=== PATIENT | male | born 1940 | race Caucasian/White ===

== ENCOUNTER 2017-04-04 13:42 | Inpatient (IN) ==
[2017-04-04 15:00] LABS: Basophils % 0.3 %; Eosinophils % 0.3 %; Hematocrit 45.2 % (37.5-50.1); Hemoglobin 15.3 g/dL (12.9-16.9); Immature Granulocytes % 0.7 % (0-4); Lymphocytes # 0.7 K/mcL (0.6-4.6); Lymphocytes % 6.4 %; Mean Corpuscular HGB Conc 33.8 g/dL (31.6-35.5); Mean Corpuscular Hemoglobin 34.5 pg (28.0-33.3); Mean Platelet Volume 9.5 fL (9.4-12.4); Monocytes # 0.7 K/mcL (0.0-1.3); Neutrophils # 8.6 K/mcL (1.6-8.9); Platelet Count 192 K/mcL (140-400); Red Blood Count 4.43 M/mcL (4.19-5.50); Red Cell Distribution Width 13.4 % (11.5-14.5); Segmented Neutrophils % 85.3 %
[2017-04-04 15:11] LABS: BUN/Creatinine Ratio 16 (6-26); Blood Urea Nitrogen 12 mg/dL (8-26); Calcium 9.2 mg/dL (8.6-10.8); Carbon Dioxide 34 mEq/L (19-29); Chloride 101 mEq/L (98-109); Glucose 159 mg/dL (70-99); Osmolality,Calculated 285 (280-300); Sodium 136 mEq/L (136-145); eGFR For African Americans > 60 (> 60); eGFR For Non-African Americans > 60 (> 60)
--- NOTE | 2017-04-04 15:39 | Emergency Department Note ---
Disposition Clinical Impression: Vertigo Disposition: Admitted As Inpatient Condition: Fair Time of Disposition: 18:12 General Adult HPI - General Chief complaint: ED Shortness of Breath/Dyspnea Stated complaint: CRISTINA-COPD Time Seen by Provider: 04/04/17 14:12 Source: patient, EMS Limitations: no limitations Nursing Notes Reviewed: Yes Vital Signs Reviewed: Yes - History of Present Illness HPI Narrative: Presents with vertiginous dizziness which began 2 days ago when he sat up on the edge of the bed and it is intermittent but lasting at times up to 1 hours constantly at a time. It is worse when he turns his head. He does have a history of TIA and he does have chronic shortness of breath from COPD but this is unchanged from baseline. He does have pain in his right chest which is present only with coughing and this is not a new finding and I did confirm that twice. He denies any other type of chest discomfort. No diaphoresis. He does not have exertional chest pain. No localized numbness or weakness of extremities, slurred speech, facial droop or confusion. Social history: Stopped smoking in 1989. Is here with his who does use nasal cannula oxygen 2 L chronically at home Pain Scale: 0 - Related Data Home Medications Medication Instructions Recorded Confirmed Aspirin [Lo-Dose Aspirin EC] 81 mg PO DAILY 07/15/16 04/04/17 Fluticasone Propionate [Flovent 110 mcg IH DAILY 07/15/16 04/04/17 Hfa] Salmeterol Xinafoate [Serevent 2 puff IH BID 07/15/16 04/04/17 Diskus] Tiotropium [Spiriva] 18 mcg IH 0700 07/15/16 04/04/17 Albuterol Sulfate [Albuterol 2 puff IH Q4H PRN 04/04/17 04/04/17 Inhaler] levoFLOXacin [Levofloxacin] 750 mg PO DAILY 04/04/17 04/04/17 predniSONE [PredniSONE] 5 mg PO TIDWM 04/04/17 04/04/17 Allergies Allergy/AdvReac Type Severity Reaction Status Date / Time Amoxicillin [From Amoxil] Allergy Intermediate Rash Verified 07/07/16 14:06 Erythromycin Base Allergy Intermediate Itching Verified 07/07/16 14:07 Review of Systems: Constitutional: No fever Vision: No blurred vision ENT: No rhinorrhea Respiratory: No new cough Allergic: No allergies : No blood in urine GI: No blood in stool Hematologic: No bruising Dermatologic: No skin rash Musculoskeletal: No pain in the extremities Neuro: No numbness of the extremities Past Medical History - Past Medical History Medical history: Reports: COPD, diabetes, TIA Psychiatric history: Reports: no psych history - Social History Smoking Status: Former smoker Smokeless Tobacco Status: No Alcohol use: Reports: none Drug use: Reports: none Physical Exam CONSTITUTIONAL: Alert and oriented X3, well-nourished, well appearing, in no apparent distress HEAD: Normocephalic; atraumatic. EYES: PERRL, no scleral icterus. NOSE: The nose is normal in appearance without rhinorrhea RESP: Normal chest excursion with respiration; breath sounds with bilateral wheezing which is symmetric Cardiovascular: Regular rate and rhythm without murmur, rub, gallop ABD: Non-distended; non-tender, soft,without rigidity, rebound or guarding SKIN: Normal for age and race; warm and dry; no apparent lesions EXTREMITIES: Pulses are 2 plus and equal times 4 extremities, no peripheral edema or calf muscle pain. - General Limitations: no limitations General appearance: alert, in no apparent distress Course Vital Signs Temperature 98.3 F 04/04/17 14:20 Pulse Rate 100 04/04/17 14:20 Respiratory Rate 22 04/04/17 14:20 Blood Pressure 149/93 04/04/17 14:20 O2 Sat by Pulse Oximetry 95 04/04/17 14:20 Temperature 98.3 F 04/04/17 14:20 Pulse Rate 100 04/04/17 14:20 Respiratory Rate 20 04/04/17 17:30 Blood Pressure 149/93 04/04/17 14:20 O2 Sat by Pulse Oximetry 96 04/04/17 17:30 Oxygen Delivery Oxygen Delivery Nasal Cannula Medical Decision Making - MDM Narrative Medical decision making narrative: I did confirm several times that the patient is not here for his breathing as he has had COPD for many years and is unchanged from baseline. His cough is unchanged. His pain in the right chest when he takes a breath is unchanged. The new finding that they are here for evaluation for his vertigo this began 2 days ago and he does have labs ordered which are pending, I did review his EKG showing normal sinus rhythm with a rate of 94 without acute ischemic change. CT scan of the brain is pending. The patient does have a history of TIA and it will be difficult to differentiate benign paroxysmal positional vertigo from a cerebellar or brainstem infarcts of the patient will be admitted for further inpatient evaluation. Results pending. 1539 I did just check back and spoke with the patient's who request that he get some of the medications that he is missed including prednisone 5 mg and Levaquin 750 mg a did write for those. Also he typically takes Serevent around this time so I did write for a DuoNeb. He did just return from head CT and these results are pending. The patient will be admitted for further evaluation of TIA or CVA as to be a cause of his vertigo [address] negative. We did speak with the hospitalist who accepts the patient for admission. Further inpatient evaluation of possible TIA or CVA. Patient is not a thrombolytic candidate due to a stroke scale of 0 and prolonged duration of symptoms. 1811 - Medical Records Medical records reviewed: Yes I reviewed the patient's medical records. - Lab Data Lab results reviewed: Yes I reviewed the patient's lab results. Result diagrams: 04/04/17 14:48 04/04/17 14:48 Lab Results 04/04/17 04/04/17 04/04/17 Range/Units 14:48 14:48 14:48 WBC 10.1 (4.3-11.1) K/mcL RBC 4.43 (4.19-5.50) M/mcL Hgb 15.3 (12.9-16.9) g/dL Hct 45.2 (37.5-50.1) % MCV 102.0 H (83.0-100.0) fL MCH 34.5 H (28.0-33.3) pg MCHC 33.8 (31.6-35.5) g/dL RDW 13.4 (11.5-14.5) % Plt Count 192 (140-400) K/mcL MPV 9.5 (9.4-12.4) fL Immature Gran % 0.7 (0-4) % Seg Neutrophils % 85.3 % Lymphocytes % 6.4 % Monocytes % 7.0 % Eosinophils % 0.3 % Basophils % 0.3 % Neutrophils # 8.6 (1.6-8.9) K/mcL Lymphocytes # 0.7 (0.6-4.6) K/mcL Monocytes # 0.7 (0.0-1.3) K/mcL Eosinophils # 0.0 (0.0-0.6) K/mcL Basophils # 0.0 (0.0-0.2) K/mcL Sodium 136 (136-145) mEq/L Potassium 4.0 (3.5-4.5) mEq/L Chloride 101 (98-109) mEq/L Carbon Dioxide 34 H (19-29) mEq/L BUN 12 (8-26) mg/dL Creatinine 0.73 (0.72-1.25) mg/dL Est GFR ( Amer) > 60 (> 60) Est GFR (Non-Af Amer) > 60 (> 60) BUN/Creatinine Ratio 16 (6-26) Glucose 159 H (70-99) mg/dL Calculated Osmolality 285 (280-300) Calcium 9.2 (8.6-10.8) mg/dL Troponin I 0.02 (0-0.03) ng/mL - Radiology Data Radiology results reviewed: Yes I reviewed the patient's radiology results. NIH Stroke Scale - Level of Consciousness LOC: Alert - LOC Questions LOC Questions: Answers both correctly - LOC Commands LOC Commands: Performs both correctly - Best Gaze Best Gaze: Normal - Visual Visual: No visual loss - Facial Palsy Facial Palsy: Normal - Motor Arms Motor Arm-Left: No drift for 10 seconds Motor Arm-Right: No drift for 10 seconds - Motor Legs Motor Leg-Left: No drift for 5 seconds Motor Leg-Right: No drift for 5 seconds - Limb Ataxia Limb Ataxia: Normal, No Ataxia - Sensory Sensory: Normal - Best Language Best Language: No aphasia - Dysarthria Dysarthria: Normal - Extinction and Inattention Extinction and Inattention: Normal - NIHSS Total Score NIHSS Total Score: 0
[2017-04-04] MEDS ORDERED: Ipratropium/Albuterol Neb 3 ML IH ONE (16:35)
[2017-04-04] MEDS ORDERED: predniSONE 20 MG TABLET PO ONE (16:35)
[2017-04-04] MEDS ORDERED: levoFLOXacin 750 MG TABLET PO ONE (16:36)
[2017-04-04] MEDS ORDERED: Naloxone 0.4 MG/ML INJ IVP PRN (20:54)
[2017-04-04] MEDS ORDERED: *HR* Promethazine 25 MG/ML VIAL IVP PRN (20:54)
[2017-04-04] MEDS ORDERED: Albuterol 2.5 MG/3 ML NEBULIZER IH PRN (20:54)
[2017-04-04] MEDS ORDERED: Acetaminophen 325 MG TABLET PO PRN (20:54)
[2017-04-04] MEDS: Nystatin SUSP 5 ML UD.LIQ PO SCH (21:11)
[2017-04-04] MEDS: *HR* Heparin 5,000 UNIT/ML VIAL SQ SCH (21:11)
--- NOTE | 2017-04-04 21:27 | Internal Med History&Physical ---
Date of Encounter: 04/04/17 Time of Encounter: 20:20 Assessment and Plan (1) Acute exacerbation of chronic obstructive pulmonary disease (COPD) Current visit: Yes Status: Acute 1. Will place on IV steroids, scheduled Duonebs, and PRN albuterol aerosols. 2. 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 3. Will request records from [facility] from this spring. 4. Will order sputum culture and gram stain. 5. If clinical status declines, patient and request transfer to [facility]. (2) Thrush Current visit: Yes Status: Acute 1. Will place on oral Nystatin suspension. 2. Monitor clinically. (3) Vertigo Current visit: Yes Status: Acute 1. Likely due to viral process. 2. 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 Symptoms started about 3 days ago associated with worsening COPD flare. 3. No focal neurologic deficits noted. (4) DVT prophylaxis Current visit: Yes Status: Acute 1. Heparin SQ. Internal Medicine - H&P: HPI Chief complaint: cough, wheeze, vertigo Admitted From: Emergency Dept Plans for Post Hospital Care: Home History of present illness: Mr. Redding is a 77 year old male who presents with significant coughing, wheezing, productive sputum, and generalized weakness for the last several days. He's had no fevers, chills, or night sweats. He has been dealing with his COPD flareup since early January and has been on multiple outpatient regimens without relief. He has gotten to the point now where he cannot continue his home medicines and came into the ER for evaluation. He has also developed some vertigo the last 3 days, especially with severe coughing fits and worsening dyspnea. He denies any focal weakness or numbness. However, he does feel dizzy when he changes positions and stands up too fast. He sees Dr. Quintana (pulmonology) at [facility] and requests transfer to [place] if his condition worsens. Patient and his prefer to stay here. However, if his hospital course becomes complicated and/or prolonged, they request transfer. Of note, patient was hospitalized in August of this year at [place] for several days and had bacterial infection in his lungs confirmed by sputum culture. We will try to obtain those records. Presently, patient is resting in bed in no distress. Upon standing him up or sitting him up, he does have a little vertigo, but I do not appreciate any nystagmus. He has no other focal neurologic deficits. Of note, patient is on chronic steroids and oxygen dependent for COPD. Past Med Surg Social Fam HX - Past Medical History Attestation: Yes The following information was validated with the patient. Source: patient, old records reviewed, obtained from family Medical history: COPD, diabetes, TIA Psychiatric history: no psych history - Past Surgical History Surgical History: herniorrhaphy - Social History Smoking Status: Former smoker Smokeless Tobacco Status: No Alcohol use: none Drug use: none Current living situation: Home, With Family Activity Level: Independent ambulation Recent Out of Country Travel Within the Last 8 Weeks: No - Family History Father Adopted: No Family Member Ethnicity: Non- Living Status: Hx Family Cardiac Disorders: No Hx Family Respiratory Disorders: Yes (COPD) Hx Family Cancer: No Hx Family GI Disorders: No Hx Family Endocrine Disorder: No Hx Family Neuromuscular Disorders: No Hx Family Neurologic Disorders: No Hx Family HEENT Disorders: No Hx Family Autoimmune Disorders: No Internal Medicine - H&P: Meds Aspirin [Lo-Dose Aspirin EC] 81 mg PO DAILY 07/15/16 [History] Fluticasone Propionate [Flovent Hfa] 110 mcg IH DAILY 07/15/16 [History] Salmeterol Xinafoate [Serevent Diskus] 2 puff IH BID 07/15/16 [History] Tiotropium [Spiriva] 18 mcg IH 0700 07/15/16 [History] Albuterol Sulfate [Albuterol Inhaler] 2 puff IH Q4H PRN 04/04/17 [History] levoFLOXacin [Levofloxacin] 750 mg PO DAILY 04/04/17 [History] predniSONE [PredniSONE] 5 mg PO TIDWM 04/04/17 [History] 3 Allergy/AdvReac Type Severity Reaction Status Date / Time Amoxicillin [From Amoxil] Allergy Intermediate Rash Verified 07/07/16 14:06 Erythromycin Base Allergy Intermediate Itching Verified 07/07/16 14:07 - Constitutional Constitutional: weakness, no chills, no fever(s), no night sweats - EENT Eyes: no blurry vision, no change in vision Ears: no ear pain, no tinnitus Nose, mouth and throat: no nasal congestion, no nasal discharge, no sinus pressure, no sore throat - Cardiovascular Cardiovascular ROS IM: no chest pain, no diaphoresis, no lightheadedness, no palpitations, no paroxysmal nocturnal dyspnea, no syncope - Respiratory Respiratory: cough, dyspnea, dyspnea on exertion, wheezing, chest congestion, excessive phlegm production, change in phlegm color, no hemoptysis, no pain on inspiration, no pain with cough - Gastrointestinal Gastrointestinal: no abdominal pain, no diarrhea, no hematemesis, no hematochezia, no melena, no nausea, no vomiting - Genitourinary Genitourinary ROS male: no dysuria, no flank pain, no hematuria - Musculoskeletal Musculoskeletal ROS IM: no arthralgias, no back pain, no muscle cramps - Integumentary Integumentary IM: no rash, no jaundice - Neurological Neurological ROS: vertigo, no abnormal speech, no focal weakness, no frequent falls, no headache(s), no numbness, no paresthesias - Psychiatric Psychiatric: no anxiety, no depression - Endocrine Endocrine IM: no polydipsia, no polyuria - Hematologic/Lymphatic Hematologic/Lymphatic: easy bruising - Allergic/Immunologic Allergic/Immunologic: wheezing, no GI upset with certain foods - Constitutional Vitals: Temp Pulse Resp BP Pulse Ox 98.2 F 105 16 154/82 97 04/04/17 18:54 04/04/17 18:54 04/04/17 18:54 04/04/17 18:54 04/04/17 19:41 General appearance: Present: cooperative, mild distress, A&O X 3, pleasant, answers questions appropriately - Head Head exam: Present: atraumatic, normal inspection - Eye Eye exam: Present: EOMI, normal appearance, PERRL. Absent: scleral icterus Pupils: Present: normal accommodation - ENT ENT exam: Present: mucous membranes dry Additional comments: + thrush on palate and inner cheeks - Neck Neck exam general surgery: Present: full ROM, supple. Absent: lymphadenopathy, tenderness - Respiratory Respiratory exam: Present: accessory muscle use, prolonged expiratory phase, respiratory distress (mild), wheezes. Absent: chest wall tenderness, rales, rhonchi Additional comments: barrel chested - Cardiovascular Cardiovascular exam: Present: distant heart sounds, RRR, +S1, +S2. Absent: diastolic murmur, systolic murmur - GI/Abdominal GI/Abdominal exam: Present: normal bowel sounds, soft. Absent: hepatomegaly, splenomegaly, tenderness - Extremities Exam Extremities exam: Present: full ROM, warm, radial pulses palpable and symmetrical. Absent: calf tenderness, pedal edema, tenderness - Back Exam Back exam: Present: normal inspection. Absent: CVA tenderness (L), CVA tenderness (R) - Neurological Exam Neurological exam: Present: alert, CN II-XII intact, oriented X3, no focal deficits, strengths equal and symetr throughout. Absent: facial droop, speech deficit Additional comments: + vertigo with position changes; no nystagmus appreciated - Psychiatric Psychiatric exam: Present: normal affect, normal mood - Skin Skin exam: Present: dry, warm. Absent: rash Internal Med - H&P Results - Labs CBC & Chem 7: 04/04/17 14:48 04/04/17 14:48 - EKG Data -: EKG Interpreted by Myself - EKG Data Prior EKG available for review: no EKG comments: 04/04/17 21:32 NSR; no acute changes - Diagnostic Studies Chest x-ray Status: image reviewed by me (hyperinflated, otherwise negative)
[2017-04-04] MEDS: Ipratropium/Albuterol Neb 3 ML IH SCH (22:17)
[2017-04-04] MEDS: methylPREDNISolone 125 MG/2 ML VIAL IVP SCH (23:39)
[2017-04-05] MEDS: Ipratropium/Albuterol Neb 3 ML IH SCH ×4 (03:53→22:50)
[2017-04-05 05:42] LABS: Basophils % 0.2 %; Hematocrit 40.2 % (37.5-50.1); Immature Granulocytes % 1.4 % (0-4); Lymphocytes # 0.2 K/mcL (0.6-4.6); Lymphocytes % 4.1 %; Mean Corpuscular HGB Conc 33.8 g/dL (31.6-35.5); Mean Corpuscular Hemoglobin 34.6 pg (28.0-33.3); Mean Corpuscular Volume 102.3 fL (83.0-100.0); Mean Platelet Volume 9.8 fL (9.4-12.4); Monocytes # 0.1 K/mcL (0.0-1.3); Neutrophils # 5.5 K/mcL (1.6-8.9); Nucleated Red Blood Cells 0.3 /100 WBC (0); Platelet Count 185 K/mcL (140-400); Red Blood Count 3.93 M/mcL (4.19-5.50); Red Cell Distribution Width 13.2 % (11.5-14.5); Segmented Neutrophils % 93.3 %
[2017-04-05] MEDS: *HR* Heparin 5,000 UNIT/ML VIAL SQ SCH ×2 (05:42→17:04)
[2017-04-05 05:43] LABS: Hemoglobin 13.6 g/dL (12.9-16.9)
[2017-04-05 05:55] LABS: Alanine Aminotransferase 19 Units/L (0-55); Albumin 3.1 g/dL (3.5-5.0); Albumin/Globulin Ratio 1.1 (1.1-2.2); Alkaline Phosphatase 86 Units/L (38-126); Aspartate Amino Transferase 10 Units/L (5-34); BUN/Creatinine Ratio 19 (6-26); Blood Urea Nitrogen 14 mg/dL (8-26); Calcium 8.7 mg/dL (8.6-10.8); Carbon Dioxide 27 mEq/L (19-29); Chloride 101 mEq/L (98-109); Globulin 2.8 g/dL (2.4-3.5); Glucose 234 mg/dL (70-99); Osmolality,Calculated 292 (280-300); Potassium 4.6 mEq/L (3.5-4.5); Sodium 137 mEq/L (136-145); Total Protein 5.9 g/dL (6.0-8.3); eGFR For African Americans > 60 (> 60); eGFR For Non-African Americans > 60 (> 60)
[2017-04-05] MEDS: Nystatin SUSP 5 ML UD.LIQ PO SCH ×4 (10:18→20:24)
[2017-04-05] MEDS: Aspirin Enteric Coated 81 MG Tablet PO SCH (10:18)
[2017-04-05] MEDS: Levofloxacin 750 MG/150 ML 750 MG/150 ML BAG IVPB SCH (10:21)
[2017-04-05] MEDS: methylPREDNISolone 125 MG/2 ML VIAL IVP SCH ×3 (10:22→23:55)
[2017-04-05] MEDS: Tiotropium 18 MCG inhalation IH SCH (10:54)
[2017-04-05] MEDS: Beclomethasone 80mcg MDI IH SCH (10:56)
--- NOTE | 2017-04-05 14:36 | Internal Med Progress Note ---
Date of Encounter: 04/05/17 Time of Encounter: 14:31 - Assessment and plan (1) Acute exacerbation of chronic obstructive pulmonary disease (COPD) Current Visit: Yes Status: Acute Assessment and plan: has underlying COPD and wears oxygen [id number] at home. 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 Now with increasing shortness of breath and diffuse wheezing on presentation. CXR nonacute. Change ATB to IV Levaquin, IV steroids and breathing treatments. Urinary antigens, respiratory PCR pending. (2) Vertigo Current Visit: Yes Status: Acute Assessment and plan: With reported episodes of dizziness and feeling like his equilibrium was off for 2-3 days prior to presentation. No evidence of orthostasis. Head CT nonacute. Brain MRI with evidence of 2 infarcts, otherwise nonacute. TTE and carotid Dopplers pending. (3) CVA (cerebral vascular accident) Current Visit: Yes Status: Acute Assessment and plan: Presented with episodes of dizziness and disequilibrium. Head CT nonacute. Brain MRI with evidence of 2 old infarcts. On ASA at home. Dizziness could be secondary to TIA. TTE and carotid Doppler pending. Consult neurology for official recommendations on antiplatelet therapy. Cont ASA. Lipid panel, Hgb A1c pending. Qualifiers: CVA mechanism: unspecified Qualified Code(s): I63.9 - Cerebral infarction, unspecified (4) Thrush Current Visit: Yes Status: Acute Assessment and plan: Continue nystatin (5) DVT prophylaxis Current Visit: Yes Status: Acute Assessment and plan: hepain - Subjective Interval history: Seen and examined at bedside. Patient is new to me, information obtained from chart review and patient report. He says he feels significantly better. Still with shortness of breath but says that is chronic and he feels at his baseline. Reports intermittent dizziness with ambulation and position changes. at bedside and updated. - Constitutional Vitals: Temp Pulse Resp BP Pulse Ox 98.0 F 105 17 150/92 97 04/05/17 11:12 04/05/17 11:12 04/05/17 11:12 04/05/17 11:12 04/05/17 11:12 General appearance: Present: cooperative, mild distress, A&O X 3, pleasant, answers questions appropriately - Head Head exam: Present: atraumatic, normocephalic - Eye Eye exam: Present: PERRL, conjuntiva pink, sclera anicteric Pupils: Present: PERRL - Neck Neck exam general surgery: Present: supple, trachea midline. Absent: lymphadenopathy - Respiratory Respiratory exam: Present: CTAB. Absent: accessory muscle use, rales, rhonchi, wheezes - Cardiovascular Cardiovascular exam: Present: RRR, +S1, +S2. Absent: diastolic murmur, gallop, rubs, systolic murmur - GI/Abdominal GI/Abdominal exam: Present: normal bowel sounds, soft, no peritoneal signs. Absent: distended, tenderness - Extremities Exam Extremities exam: Present: warm, radial pulses palpable and symmetrical. Absent : calf tenderness, cyanotic, pedal edema - Neurological Exam Neurological exam: Present: CN II-XII intact, oriented X3, no focal deficits. Absent: pronater drift, facial droop, speech deficit - Skin Skin exam: Present: dry, intact Internal Medicine: Result - Labs CBC & Chem 7: 04/05/17 05:13 04/05/17 05:13 Labs: Short CBC 04/05/17 Range/Units 05:13 WBC 5.9 (4.3-11.1) K/mcL Hgb 13.6 D (12.9-16.9) g/dL Hct 40.2 (37.5-50.1) % Plt Count 185 (140-400) K/mcL Neutrophils # 5.5 (1.6-8.9) K/mcL BMP 04/05/17 05:13 Sodium 137 Potassium 4.6 H Chloride 101 Carbon Dioxide 27 BUN 14 Creatinine 0.74 Glucose 234 H Calcium 8.7 Liver Function 04/05/17 Range/Units 05:13 Total Bilirubin 1.0 (0.2-1.2) mg/dL AST 10 (5-34) Units/L ALT 19 (0-55) Units/L Alkaline Phosphatase 86 (38-126) Units/L Albumin 3.1 L (3.5-5.0) g/dL - Impressions Impressions Brain MRI 04/05/17 20:54 IMPRESSION: No acute intracranial abnormality. 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 Mild parenchymal volume loss. Mild chronic microvascular disease. D/ / Kanu Garcia MD / Kanu Garcia MD Interpreting Provider: Kanu Garcia MD Consult Discharge Plan - Plan Referrals: Edgard Concepcion MD [Primary Care Provider] -
[2017-04-05] MEDS ORDERED: D5% in Water 1,000 ML IVC PRN (16:50)
[2017-04-05] MEDS ORDERED: *HR* Dextrose 50 % in Water (Syg) 50 ML SYRINGE IVP PRN (16:50)
[2017-04-05] MEDS ORDERED: Dextrose Gel 15 GM PO PRN ×2 (16:50)
[2017-04-05] MEDS: Insulin LISPRO 300 UNITS/3 ML VIAL SQ SCH (17:33)
[2017-04-05 18:51] LABS: Adenovirus Not Detected (Not Detect); Bordetella Pertussis Not Detected (Not Detect); Chlamydophila pneumoniae Not Detected (Not Detect); Coronavirus 229E Not Detected (Not Detect); Coronavirus HKU1 Not Detected (Not Detect); Coronavirus NL63 Not Detected (Not Detect); Coronavirus OC43 Not Detected (Not Detect); Human Metapneumovirus Not Detected (Not Detect); Human Rhinovirus/Enterovirus Not Detected (Not Detect); Influenza A Subtype 2009 H1 Not Detected (Not Detect); Influenza A Untypeable Not Detected (Not Detect); Influenza B Not Detected (Not Detect); Mycoplasma pneumoniae Not Detected (Not Detect); Parainfluenza Virus 1 Not Detected (Not Detect); Parainfluenza Virus 2 Not Detected (Not Detect); Parainfluenza Virus 3 Not Detected (Not Detect); Parainfluenza Virus 4 Not Detected (Not Detect); Respiratory Syncytial Virus Not Detected (Not Detect)
[2017-04-05] MEDS ORDERED: Insulin LISPRO 300 UNITS/3 ML VIAL SQ SCH (21:00)
[2017-04-06] MEDS: Ipratropium/Albuterol Neb 3 ML IH SCH ×3 (04:07→16:22)
[2017-04-06 04:37] LABS: Hematocrit 38.8 % (37.5-50.1); Hemoglobin 13.2 g/dL (12.9-16.9); Mean Corpuscular Hemoglobin 34.3 pg (28.0-33.3); Mean Corpuscular Volume 100.8 fL (83.0-100.0); Mean Platelet Volume 9.9 fL (9.4-12.4); Platelet Count 181 K/mcL (140-400); Red Blood Count 3.85 M/mcL (4.19-5.50); Red Cell Distribution Width 13.2 % (11.5-14.5)
[2017-04-06 04:53] LABS: BUN/Creatinine Ratio 21 (6-26); Blood Urea Nitrogen 15 mg/dL (8-26); Carbon Dioxide 25 mEq/L (19-29); Chloride 99 mEq/L (98-109); Glucose 260 mg/dL (70-99); Osmolality,Calculated 290 (280-300); Potassium 4.3 mEq/L (3.5-4.5); Sodium 135 mEq/L (136-145); eGFR For African Americans > 60 (> 60); eGFR For Non-African Americans > 60 (> 60)
[2017-04-06 04:55] LABS: Chol/HDL Ratio 2.3 (0-4.9)
[2017-04-06] MEDS: *HR* Heparin 5,000 UNIT/ML VIAL SQ SCH (05:31)
[2017-04-06] MEDS: Tiotropium 18 MCG inhalation IH SCH (07:44)
[2017-04-06] MEDS: Nystatin SUSP 5 ML UD.LIQ PO SCH ×2 (08:49→14:02)
[2017-04-06] MEDS: methylPREDNISolone 125 MG/2 ML VIAL IVP SCH (08:49)
[2017-04-06] MEDS: Aspirin Enteric Coated 81 MG Tablet PO SCH (08:49)
[2017-04-06] MEDS: Levofloxacin 750 MG/150 ML 750 MG/150 ML BAG IVPB SCH (08:50)
[2017-04-06] MEDS: Insulin LISPRO 300 UNITS/3 ML VIAL SQ SCH ×2 (09:09→12:31)
[2017-04-06 11:07] VITALS: BP 159/72
[2017-04-06] MEDS: Beclomethasone 80mcg MDI IH SCH (11:48)
--- NOTE | 2017-04-06 13:49 | Discharge Summary ---
Date of Encounter: 04/06/17 Time of Encounter: 13:48 - Discharge Diagnosis (1) Vertigo Priority: Primary Status: Acute (2) Acute exacerbation of chronic obstructive pulmonary disease (COPD) Priority: Secondary Status: Acute (3) Thrush Priority: Secondary Status: Acute (4) History of TIA (transient ischemic attack) Priority: Secondary Status: Acute - Discharge Medications Home Medications: Aspirin [Lo-Dose Aspirin EC] 81 mg PO DAILY 07/15/16 [History] Fluticasone Propionate [Flovent Hfa] 110 mcg IH DAILY 07/15/16 [History] Salmeterol Xinafoate [Serevent Diskus] 2 puff IH BID 07/15/16 [History] Tiotropium [Spiriva] 18 mcg IH 0700 07/15/16 [History] Albuterol Sulfate [Albuterol Inhaler] 2 puff IH Q4H PRN 04/04/17 [History] levoFLOXacin [Levofloxacin] 750 mg PO DAILY 04/04/17 [History] predniSONE [PredniSONE] 5 mg PO TIDWM 04/04/17 [History] Fluticasone Propionate Nasal [Flonase] 50 mcg NS DAILY 30 Days #1 bottle [Rx] Nystatin [Nystatin Suspension] 100,000 units PO QID 7 Days #120 ml 04/06/17 [Rx] PredniSONE [Deltasone] 20 mg PO BID 5 Days #10 tablet 04/06/17 [Rx] Allergies/Adverse Reactions: 3 Allergy/AdvReac Type Severity Reaction Status Date / Time Amoxicillin [From Amoxil] Allergy Intermediate Rash Verified 04/05/17 09:01 Erythromycin Base Allergy Intermediate Itching Verified 04/05/17 09:01 Date of admission: 04/05/17 15:59 Primary care physician: Edgard Concepcion MD Consults: 04/05/17 16:00 PT [Consult to Physical Therapy] [CONS] Routine Comment: Evaluate, develop and implement POC Reason for Consult: General decline in condition 04/06/17 10:12 Consult to Emergency Worker [CONS] Routine Reason for SW Consult: Potential needs at D/C. Discharging clinician: Ophelia Reyes - Patient Status Disposition: Home, Self-Care Condition: Fair Functional capacity at discharge: independent ambulation Overall status at discharge: patient is progressing back to baseline - Discharge Instructions Follow Up With: Edgard Concepcion MD [Primary Care Provider] - 04/21/17 3:00 pm - Diet and Activity Activity: increase activity as tolerated Diet: advance to your usual diet Hospital course: Mr. Redding is a 77 year old male who presented with dizziness, coughing, wheezing, productive sputum, and generalized weakness for the past several days. He has a history of O2 dependent COPD, diabetes, TIA. Nightly fevers, chills, night sweats. 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 He is currently taking 5 mg of prednisone 3 times a day He has been on multiple outpatient treatments without relief. For the past 3 days he developed vertigo especially with severe coughing fits and worsening dyspnea. He denies any focal weakness or numbness. He does feel dizzy when he changes position while standing or sitting. He sees Dr. Quintana, pulmonology at [facility]. Of note, the patient was hospitalized in 08/2016 at [facility] for several days and had bacterial infection in his lungs confirmed by sputum culture. The patient upon arrival to the ED he was in no distress. He did not have any nystagmus or no other focal neurological deficits. A chest x-ray done showed no acute process. Viral respiratory panel was done and was negative. Sputum culture done was negative. He did not have any fevers. He did not have any leukocytosis. Patient was admitted for further monitoring and treatment of acute exacerbation of COPD. He was started on IV Solu-Medrol, he was continued on Levaquin which she was taking prior to admission. Urinary antigen labs are pending at the time of discharge. Sputum culture has been negative growth to date. Patient and his did state he is at his baseline breathing. In regards to his vertigo, this is likely due to viral process and presyncope likely on top of this from frequent coughing spells. 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 A carotid artery Doppler showed left ICA 40-59% stenosis, echocardiogram showed LVEF 55-60 % without any gross abnormalities.Neurology was consulted. Seems as though patient's symptoms most likely related to vestibular dysfunction seen in patients with BPPV. Also severe COPD coughing was contributing to this and aggravating dizziness. She would benefit from vestibular rehabilitation but because patient is so fragile that vestibular maneuvers may be too much for him. At that time patient was stable for discharge since he is at his breathing baseline and his vertigo symptoms have improved. He was discharged home to complete 20 mg prednisone twice a day for 5 more days, continue his Levaquin regimen that he was taking prior to admission (on 04/01 was to take Levaquin for 14 days). He also had thrush and was prescribed nystatin. A trial of Flonase will be given for him to try as outpatient, as this could be a cause of chronic cough. . - Time Spent with Patient Total time spent providing and/or coordinating discharge services: - Constitutional Vitals: Temp Pulse Resp BP Pulse Ox 97.8 F 88 18 159/72 97 04/06/17 11:06 04/06/17 11:06 04/06/17 11:49 04/06/17 11:06 04/06/17 11:49 General appearance: Present: cooperative, mild distress, A&O X 3, pleasant, answers questions appropriately Exam: - Head Head exam: Present: atraumatic, normocephalic - Eye Eye exam: Present: PERRL, conjuntiva pink, sclera anicteric Pupils: Present: PERRL - Neck Neck exam general surgery: Present: supple, trachea midline. Absent: lymphadenopathy - Respiratory Respiratory exam: Present: CTAB, poor aeration. Absent: accessory muscle use, rales, rhonchi, wheezes - Cardiovascular Cardiovascular exam: Present: RRR, +S1, +S2. Absent: diastolic murmur, gallop, rubs, systolic murmur - GI/Abdominal GI/Abdominal exam: Present: normal bowel sounds, soft, no peritoneal signs. Absent: distended, tenderness - Extremities Exam Extremities exam: Present: warm, radial pulses palpable and symmetrical. Absent : calf tenderness, cyanotic, pedal edema - Neurological Exam Neurological exam: Present: CN II-XII intact, oriented X3, no focal deficits. Absent: pronater drift, facial droop, speech deficit - Skin Skin exam: Present: dry, intact
--- NOTE | 2017-04-06 14:22 | Neurology - Consult Note ---
Date of Encounter: 04/06/17 Time of Encounter: 14:21 Assessment and Plan (1) Vertigo Current Visit: Yes Status: Acute NO evidence of intracranial abnormality. Vertigo symptoms likely related to vestibular dysfunction seen in patients with BPPV. Severe COPD coughing may also cause dizziness due to impaired venous return that can also aggravate dizziness. treatment is largely symptomatic. He may benefit from vestibular rehab but he is so fragile and Vestibular maneuver may be too much for him. Not much to offer from neurology perspective. Okay to discharge home and follow up with PCP. History of Present Illness Chief complaint: Vertigo HPI: Mr. Redding is a 77 year old male with PMH significant fo COPD on oxygen supplementation who developed acute onset intermittent dizziness, describes as vertiginous feeling. Patient is interviewed in the presence of his . Patient started to experiencing sudden onset of vertigo two days ago. Describes as room spinning sensation and then it happened he had to grab something and wait until dizziness go away before starts moving. He does have COPD and SOB and is on Oxygen around the clock. No focal neurological deficit. He does have bilaterally hearing difficulty, no tinnitus. No nausea or vomiting noted. relates that the dizziness tend to occur after coughing MRI of brain showed no acute intracranial abnormality. carotid artery doppler showed left ICA 40-59% stenosis. Echocardiogram: LVEF 55-60%. Normal LV chamber size, wall thickness and function. Mild left ventricular diastolic dysfunction. Normal right ventricular structure and function. No evidence of pulmonary hypertension. No significant valvular dysfunction. At the time of this interview, his dizziness has been improving. When sitting in bed, he denies dizziness Past Med Surg Social Fam HX - Past Medical History Medical history: COPD, diabetes, TIA Psychiatric history: no psych history - Past Surgical History Surgical History: herniorrhaphy - Social History Smoking Status: Former smoker Smokeless Tobacco Status: No Alcohol use: none Drug use: none - Family History Father Adopted: No Family Member Ethnicity: Non- Living Status: Hx Family Cardiac Disorders: No Hx Family Respiratory Disorders: Yes (COPD) Hx Family Cancer: No Hx Family GI Disorders: No Hx Family Endocrine Disorder: No Hx Family Neuromuscular Disorders: No Hx Family Neurologic Disorders: No Hx Family HEENT Disorders: No Hx Family Autoimmune Disorders: No Medications and Allergies Aspirin [Lo-Dose Aspirin EC] 81 mg PO DAILY 07/15/16 [History] Fluticasone Propionate [Flovent Hfa] 110 mcg IH DAILY 07/15/16 [History] Salmeterol Xinafoate [Serevent Diskus] 2 puff IH BID 07/15/16 [History] Tiotropium [Spiriva] 18 mcg IH 0700 07/15/16 [History] Albuterol Sulfate [Albuterol Inhaler] 2 puff IH Q4H PRN 04/04/17 [History] levoFLOXacin [Levofloxacin] 750 mg PO DAILY 04/04/17 [History] predniSONE [PredniSONE] 5 mg PO TIDWM 04/04/17 [History] 3 Allergy/AdvReac Type Severity Reaction Status Date / Time Amoxicillin [From Amoxil] Allergy Intermediate Rash Verified 04/05/17 09:01 Erythromycin Base Allergy Intermediate Itching Verified 04/05/17 09:01 All Systems: A 10-system review of systems was performed and is negative for pertinent findings except as documented above in the HPI. Physical Examination - Vital Signs Vital Signs: Initial Vital Signs Temp Pulse Resp BP Pulse Ox 98.3 F 100 22 149/93 95 04/04/17 14:20 04/04/17 14:20 04/04/17 14:20 04/04/17 14:20 04/04/17 14:20 - Constitutional General appearance: chronically ill - Neurologic Detailed motor examination: full strength in all major muscle groups Motor examination - right side: 5/5: deltoids, biceps, triceps, wrist flexion, wrist extension, precision assembler, hip flexors, tibialis Anterior, quadriceps, toe extension (EHL), plantarflexion Motor examination - left side: 5/5: deltoids, biceps, triceps, wrist flexion, wrist extension, hip flexors, precision assembler, quadriceps, tibialis Anterior, toe extension (EHL), plantarflexion Mental Status Examination: awake, alert, oriented to person, oriented to place, oriented to time, follows commands appropriately, answers questions appropriately, no agnosia, no aphasia, no aproxia Cranial nerve examination: PERRL, EOMI, visual marroquin intact, corneal reflexes brisk symmetrically, sensory to face intact, mastication intact, no facial asymmetry is present, no dysarthria, hearing is intact symmetrically, soft palate elevates bilaterally upon phonation, gag reflex intact, flexes SCM and trapezius muscles symmetrically with full power, tongue protrudes midline, no atrophy or facial fasiculations present Cerebellar examination: no dysmetria, performs finger to nose and heel to loya symmetrically without ataxia, no gait ataxia, no truncal ataxia, no difficulty with rapid alternating movements Results - Laboratory Findings CBC and BMP: 04/06/17 03:53 04/06/17 03:53 Abnormal lab findings: Abnormal lab results RBC 3.85 M/mcL (4.19-5.50) L 04/06/17 03:53 MCV 100.8 fL (83.0-100.0) H 04/06/17 03:53 MCH 34.3 pg (28.0-33.3) H 04/06/17 03:53 Lymphocytes # 0.2 K/mcL (0.6-4.6) L 04/05/17 05:13 Nucleated RBCs/100 WBC 0.3 /100 WBC (0) H 04/05/17 05:13 Sodium 135 mEq/L (136-145) L 04/06/17 03:53 Glucose 260 mg/dL (70-99) H 04/06/17 03:53 POC Glucose 280 (58-89) H 04/05/17 19:46 Hemoglobin A1c 8.0 % (-5.6) H 04/06/17 03:53 Serum Total Protein 5.9 g/dL (6.0-8.3) L 04/05/17 05:13 Albumin 3.1 g/dL (3.5-5.0) L 04/05/17 05:13 HDL Cholesterol 75 mg/dL (40-59) H 04/06/17 03:53 Consult Discharge Plan - Plan Referrals: Edgard Concepcion MD [Primary Care Provider] - 04/21/17 3:00 pm
[2017-04-06] MEDS ORDERED: Albuterol 2.5 MG/3 ML NEBULIZER AER SCH (16:00)
--- NOTE | 2017-04-07 12:42 | Electrocardiograph Report ---
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
== END 2017-04-06 17:09 | disposition home or self-care (01) | DRG 191 ==
LOC: 3BNU 13:42 → EMEROO 13:42 → 3BNU 18:40 → SUATTDRO 04-05 15:59
PROVIDERS: ADMIT Hospitalist; ATTEND Student in an Organized Health Care Education/Training Program

== ENCOUNTER 2017-12-07 14:02 | Inpatient (IN) ==
[2017-12-07] MEDS ORDERED: methylPREDNISolone 125 MG/2 ML VIAL IVP ONE (14:07)
[2017-12-07] MEDS ORDERED: 0.9 % Sodium Chloride 1,000 ML IVC ONE ×2 (14:07→15:27)
[2017-12-07] MEDS ORDERED: Ipratropium/Albuterol Neb 3 ML IH ONE (14:07)
--- NOTE | 2017-12-07 14:14 | Emergency Department Note ---
Disposition Clinical Impression: Acute exacerbation of chronic obstructive airways disease, Respiratory distress Sepsis Qualifiers: Sepsis type: sepsis due to unspecified organism Qualified Code(s): A41.9 - Sepsis, unspecified organism Disposition: Admitted As Inpatient Condition: Fair Referrals: Edgard Concepcion MD [Primary Care Provider] - Forms: ED Satisfaction Letter Time of Disposition: 15:32 SOB HPI - General Chief Complaint: ED Shortness of Breath/Dyspnea Stated Complaint: gavi/sob/exac COPD Time Seen by Provider: 12/07/17 14:03 Source: patient Mode of arrival: ambulatory Limitations: no limitations Nursing Notes Reviewed: Yes Vital Signs Reviewed: Yes - History of Present Illness 77-year-old male with a history of severe COPD oxygen dependent on 2 half liters presents for evaluation of dyspnea. provided history stating that he was recently diagnosed with pneumonia approximately a month ago. Not currently on antibiotics. states symptom onset was over the past 24 hours that occurred last night. Has had a nonproductive cough. No notable fevers. Patient does use nebs as well as steroids at home. His hypoxic with oxygen saturation of the 85-86% last night and did respond to increase oxygen at home. Patient does follow with pulmonary here as well as [place] [place]. Patient denies any chest pain, nausea, vomiting or any other complaints. - Related Data Home Medications Medication Instructions Recorded Confirmed Aspirin [Lo-Dose Aspirin EC] 81 mg PO DAILY 07/15/16 12/07/17 Salmeterol Xinafoate [Serevent 2 puff IH BID 07/15/16 12/07/17 Diskus] Tiotropium [Spiriva] 18 mcg IH 0700 07/15/16 12/07/17 Albuterol Sulfate [Albuterol 2 puff IH Q4H PRN 04/04/17 12/07/17 Inhaler] Furosemide [Lasix] 20 mg PO DAILY PRN 12/07/17 12/07/17 methylPREDNISolone [Medrol] 4 mg PO BID 12/07/17 12/07/17 Allergies Allergy/AdvReac Type Severity Reaction Status Date / Time Amoxicillin [From Amoxil] Allergy Intermediate Rash Verified 12/07/17 14:07 Erythromycin Base Allergy Intermediate Itching Verified 12/07/17 14:07 All systems ED: reviewed and negative except as stated. Constitutional: Denies: fever Cardiovascular: Denies: chest pain Respiratory: Reports: cough, dyspnea. Denies: sputum production Gastrointestinal: Denies: abdominal pain, nausea, vomiting Past Medical History - Past Medical History Source: patient Medical history: Reports: COPD, diabetes, TIA Surgical history: Reports: herniorrhaphy Psychiatric history: Reports: no psych history - Social History Smoking Status: Former smoker Smokeless Tobacco Status: No Alcohol use: Reports: none Drug use: Reports: none Physical Exam - General Limitations: no limitations General appearance: alert, in distress - Head Head exam: atraumatic, normocephalic, normal inspection - Eye Eye exam: Present: normal appearance, EOMI - ENT ENT exam: normal exam, mucous membranes moist - Neck Neck exam: Present: normal inspection - Chest Chest inspection: Present: normal inspection, symmetric chest wall rise - Respiratory Respiratory exam: Present: respiratory distress, wheezes (Faint inspiratory/exp wheezes), accessory muscle use, prolonged expiratory phase - Cardiovascular Cardiovascular exam: Present: normal rhythm, tachycardia. Absent: systolic murmur - Abdominal Exam Abdominal exam: Present: soft, Non-Tender - Extremities Exam Extremities exam: Present: normal inspection. Absent: pedal edema - Back Exam Back exam: Present: normal inspection - Neurological Exam Neurological exam: Present: alert, oriented X3, CN II-XII intact - Skin Skin exam: Present: warm, dry, intact Course Course Narrative: Patient seen and examined. Patient does appear to be in acute respiratory distress. BiPAP and respiratory at bedside. Patient does have a strong history of COPD. Patient will be treated as a COPD exacerbation/sepsis. Patient's tachycardic and tachypnea. Disposition likely admission. - Reevaluation(s) Reevaluation #1: Patient symptoms of her to be improved on BiPAP. Patient states that he would like to be intubated if his breathing were to decompensate. Patient's states that he was on Levaquin last month but did not seem to improve his symptoms. Patient did improve with Omnicef. Awaiting chest x-ray. Time: 14:40 Reevaluation #2: Patient seen and examined. Patient appears to be breathing more comfortably. Time: 15:11 Reevaluation #3: Patient's blood gas shows CO2 of 50. Will titrate down the patient's PaO2. states that he improved after Omnicef. Will prescribe cefepime is a patient does have recent diagnosis of pneumonia proximally month ago. Time: 15:25 Vital Signs Temperature 99.6 F 12/07/17 14:05 Pulse Rate 118 12/07/17 14:05 Respiratory Rate 29 12/07/17 14:05 Blood Pressure 195/130 12/07/17 14:05 O2 Sat by Pulse Oximetry 89 12/07/17 14:05 Temperature 99.6 F 12/07/17 14:05 Pulse Rate 94 12/07/17 16:03 Respiratory Rate 22 12/07/17 16:03 Blood Pressure 127/74 12/07/17 16:03 O2 Sat by Pulse Oximetry 96 12/07/17 16:03 Oxygen Delivery Oxygen Delivery Bipap Shortness of Breath/Dyspnea - MDM Narrative Medical decision making narrative: Patient has a history of severe COPD. Patient did meet SIRS criteria with tachycardia and tachypnea. Patient was placed on BiPAP upon arrival to the ED. Patient was given triple nebs as well as IV steroids. Patient does have a history of recent steroid use and pneumonia in the past month. Not currently on antibiotics. Symptom onset appeared to gotten worse last night with increased work of breathing nonproductive cough as well as hypoxia. Patient's requiring increased oxygen requirements. Patient's breathing improved after noninvasive positive pressure ventilation. Patient still is agreeable to intubation. Given the work of breathing the patient was started on broad- spectrum antibiotics as his concerns for pneumonia. May de-escalate antibiotics during the hospital course. Patient was given IV fluids. Basic labs revealed leukocytosis which is likely multifactorial setting of recent steroid use as well as stress response and/or infection. Patient's lactate was also elevated. Patient was fluid resuscitated however the patient did not require a 30 mL/kg bolus for hemodynamic support. Patient also has unknown cardiopulmonary function and will need to be titrated with IV fluids. Patient will be admitted to the hospital service for continued respiratory support monitoring. - Lab Data Lab results reviewed: Yes I reviewed the patient's lab results. Result diagrams: 12/07/17 14:12/07/17 14: Lab Results 12/07/17 12/07/17 12/07/17 Range/Units 14:09 14: 14:09 WBC 22.6 H (4.3-11.1) K/mcL RBC 3.94 L (4.19-5.50) M/mcL Hgb 14.6 (12.9-16.9) g/dL Hct 42.4 (37.5-50.1) % MCV 107.6 H (83.0-100.0) fL MCH 37.1 H (28.0-33.3) pg MCHC 34.4 (31.6-35.5) g/dL RDW 13.5 (11.5-14.5) % Plt Count 216 (140-400) K/mcL MPV 9.7 (9.4-12.4) fL Immature Gran % 1.5 (0-4) % Seg Neutrophils % 83.3 % Lymphocytes % 5.7 % Monocytes % 9.1 % Eosinophils % 0.2 % Basophils % 0.2 % Neutrophils # 18.8 H (1.6-8.9) K/mcL Lymphocytes # 1.3 (0.6-4.6) K/mcL Monocytes # 2.1 H (0.0-1.3) K/mcL Eosinophils # 0.0 (0.0-0.6) K/mcL Basophils # 0.1 (0.0-0.2) K/mcL Nucleated RBCs/100 WBC 0.1 H (0) /100 WBC Sample Site ABG pH (7.32-7.45) pH Units ABG pCO2 (35-45) mmHg ABG pO2 (85-104) mmHg ABG HCO3 (21-27) mEq/L ABG Total CO2 (20-26) mEq/L ABG O2 Saturation (95-98) % ABG Base Excess (-2 to 3) mEq/L Ronaldo Test O2 Delivery Device Blood Gas Modality Inspired O2 (1-15=lpm [id number]=%) Sodium 134 L (136-145) mEq/L Potassium 4.2 (3.5-5.1) mEq/L Chloride 99 (98-107) mEq/L Carbon Dioxide 27 (23-29) mEq/L BUN 15 (8-23) mg/dL Creatinine 0.56 L (0.70-1.30) mg/dL Est GFR ( Amer) > 60 (> 60) Est GFR (Non-Af Amer) > 60 (> 60) BUN/Creatinine Ratio 27 H (6-26) Glucose 225 H (70-105) mg/dL Calculated Osmolality 286 (280-300) Lactic Acid 2.9 H (0.5-2.2) mmol/L Calcium 9.3 (8.6-10.3) mg/dL Troponin I < 0.03 (< 0.04) ng/mL B-Natriuretic Peptide (Less than 100) pg/mL 12/07/17 12/07/17 Range/Units 14:09 15:17 WBC (4.3-11.1) K/mcL RBC (4.19-5.50) M/mcL Hgb (12.9-16.9) g/dL Hct (37.5-50.1) % MCV (83.0-100.0) fL MCH (28.0-33.3) pg MCHC (31.6-35.5) g/dL RDW (11.5-14.5) % Plt Count (140-400) K/mcL MPV (9.4-12.4) fL Immature Gran % (0-4) % Seg Neutrophils % % Lymphocytes % % Monocytes % % Eosinophils % % Basophils % % Neutrophils # (1.6-8.9) K/mcL Lymphocytes # (0.6-4.6) K/mcL Monocytes # (0.0-1.3) K/mcL Eosinophils # (0.0-0.6) K/mcL Basophils # (0.0-0.2) K/mcL Nucleated RBCs/100 WBC (0) /100 WBC Sample Site R Radial ABG pH 7.35 (7.32-7.45) pH Units ABG pCO2 51 H (35-45) mmHg ABG pO2 188 H (85-104) mmHg ABG HCO3 28 H (21-27) mEq/L ABG Total CO2 29 H (20-26) mEq/L ABG O2 Saturation 100 H (95-98) % ABG Base Excess 1 (-2 to 3) mEq/L Ronaldo Test N/A O2 Delivery Device BiPAP Blood Gas Modality BiLevel Inspired O2 35.0 (1-15=lpm [id number]=%) Sodium (136-145) mEq/L Potassium (3.5-5.1) mEq/L Chloride (98-107) mEq/L Carbon Dioxide (23-29) mEq/L BUN (8-23) mg/dL Creatinine (0.70-1.30) mg/dL Est GFR ( Amer) (> 60) Est GFR (Non-Af Amer) (> 60) BUN/Creatinine Ratio (6-26) Glucose (70-105) mg/dL Calculated Osmolality (280-300) Lactic Acid (0.5-2.2) mmol/L Calcium (8.6-10.3) mg/dL Troponin I (< 0.04) ng/mL B-Natriuretic Peptide 49 (Less than 100) pg/mL - Radiology Data Radiology results reviewed: Yes I reviewed the patient's radiology results. Chest X-Ray 12/07/17 14:08 IMPRESSION: 1. Chronic interstitial changes and other sequela of smoking including emphysema. 2. Calcific atherosclerotic disease aorta. 3. Otherwise unremarkable chest. D/ / Boogie Sommer / Boogie Sommer Interpreting Provider: Boogie Sommer - EKG Data EKG attestation: Yes I reviewed and interpreted this EKG. EKG shows normal: Reports: sinus rhythm Rate: Reports: tachycardia Rhythm: Reports: NSR [place]ity/QRS: Reports: normal Interpretation: Reports: no acute changes, unchanged when compared to prior tracing (date), nonspecific ST-T wave changes S.B.AJeannineRJeannine - S.Trae.ANadiya Situation: Demographics Background: Presenting Complaint Assessment: Vital Signs, Course and respsone to treatment, Patient/Family Expectation Recommendation: Barrier(s) to disposition, Recommendation based on pending studies, treatments, or consults S.B.ANadiya Report Given to: Dr. Jose HagerBJeannineANadiya Repor Time: 16:07
[2017-12-07 14:30] LABS: Basophils # 0.1 K/mcL (0.0-0.2); Basophils % 0.2 %; Eosinophils % 0.2 %; Hematocrit 42.4 % (37.5-50.1); Hemoglobin 14.6 g/dL (12.9-16.9); Immature Granulocytes % 1.5 % (0-4); Lymphocytes # 1.3 K/mcL (0.6-4.6); Lymphocytes % 5.7 %; Mean Corpuscular HGB Conc 34.4 g/dL (31.6-35.5); Mean Corpuscular Hemoglobin 37.1 pg (28.0-33.3); Mean Corpuscular Volume 107.6 fL (83.0-100.0); Mean Platelet Volume 9.7 fL (9.4-12.4); Monocytes # 2.1 K/mcL (0.0-1.3); Monocytes % 9.1 %; Neutrophils # 18.8 K/mcL (1.6-8.9); Nucleated Red Blood Cells 0.1 /100 WBC (0); Platelet Count 216 K/mcL (140-400); Red Blood Count 3.94 M/mcL (4.19-5.50); Red Cell Distribution Width 13.5 % (11.5-14.5); Segmented Neutrophils % 83.3 %
--- NOTE | 2017-12-07 14:37 | Emergency Department Note ---
Disposition Clinical Impression: Acute exacerbation of chronic obstructive airways disease Disposition: Still a Patient Referrals: Edgard Concepcion MD [Primary Care Provider] - Forms: ED Satisfaction Letter General Adult HPI - General Chief complaint: ED Shortness of Breath/Dyspnea Stated complaint: gavi/sob/exac COPD Time Seen by Provider: 12/07/17 14:03 Source: patient Mode of arrival: ambulatory Limitations: no limitations - History of Present Illness Pain Scale: 0 - Related Data Home Medications Medication Instructions Recorded Confirmed Aspirin [Lo-Dose Aspirin EC] 81 mg PO DAILY 07/15/16 04/04/17 Fluticasone Propionate [Flovent 110 mcg IH DAILY 07/15/16 04/04/17 Hfa] Salmeterol Xinafoate [Serevent 2 puff IH BID 07/15/16 04/04/17 Diskus] Tiotropium [Spiriva] 18 mcg IH 0700 07/15/16 04/04/17 Albuterol Sulfate [Albuterol 2 puff IH Q4H PRN 04/04/17 04/04/17 Inhaler] levoFLOXacin [Levofloxacin] 750 mg PO DAILY 04/04/17 04/04/17 predniSONE [PredniSONE] 5 mg PO TIDWM 04/04/17 04/04/17 Previous Rx's Medication Instructions Recorded Fluticasone Propionate Nasal 50 mcg NS DAILY 30 Days #1 bottle 04/06/17 [Flonase] Nystatin [Nystatin Suspension] 100,000 units PO QID 7 Days #120 ml 04/06/17 PredniSONE [Deltasone] 20 mg PO BID 5 Days #10 tablet 04/06/17 Allergies Allergy/AdvReac Type Severity Reaction Status Date / Time Amoxicillin [From Amoxil] Allergy Intermediate Rash Verified 12/07/17 14:07 Erythromycin Base Allergy Intermediate Itching Verified 12/07/17 14:07 Constitutional: Denies: fever Cardiovascular: Denies: chest pain Respiratory: Reports: cough, dyspnea. Denies: sputum production Gastrointestinal: Denies: abdominal pain, nausea, vomiting Past Medical History - Past Medical History Medical history: Reports: COPD, diabetes, TIA Surgical history: Reports: herniorrhaphy Psychiatric history: Reports: no psych history - Social History Smoking Status: Former smoker Smokeless Tobacco Status: No Alcohol use: Reports: none Drug use: Reports: none Physical Exam - General Limitations: no limitations General appearance: alert, in distress Course - Reevaluation(s) Reevaluation #1: Attestation note I examined this patient and my medical decision-making was reviewed with the emergency medicine resident. I agree with the documented findings, disposition and treatment plan as described except to the extent set forth below. Patient seen with emergency medicine resident Dr. July Stone, Please see a copy of his note for details of the H&P, ED evaluation, management and disposition. I have independently evaluated the patient and confirmed appropriate portions of the history and physical exam. Briefly: 77-year-old male history of advanced age COPD home O2 dependent comes in by private vehicle with profound dyspnea on exertion and near respiratory failure. Patient was placed working and BiPAP triple DuoNeb, IV steroids getting screening labs EKG chest x-ray with admission anticipated. Providing 40 minutes critical care services patient. Admission disposition pending Time: 14:36 Vital Signs Temperature 99.6 F 12/07/17 14:05 Pulse Rate 118 12/07/17 14:05 Respiratory Rate 29 12/07/17 14:05 Blood Pressure 195/130 12/07/17 14:05 O2 Sat by Pulse Oximetry 89 12/07/17 14:05 Temperature 99.6 F 12/07/17 14:05 Pulse Rate 111 12/07/17 14:15 Respiratory Rate 28 12/07/17 14:29 Blood Pressure 141/97 12/07/17 14:29 O2 Sat by Pulse Oximetry 95 12/07/17 14:29 Oxygen Delivery Oxygen Delivery Nasal Cannula Medical Decision Making - Lab Data Result diagrams: 12/07/17 14:09 Lab Results 12/07/17 Range/Units 14:09 WBC 22.6 H (4.3-11.1) K/mcL RBC 3.94 L (4.19-5.50) M/mcL Hgb 14.6 (12.9-16.9) g/dL Hct 42.4 (37.5-50.1) % MCV 107.6 H (83.0-100.0) fL MCH 37.1 H (28.0-33.3) pg MCHC 34.4 (31.6-35.5) g/dL RDW 13.5 (11.5-14.5) % Plt Count 216 (140-400) K/mcL MPV 9.7 (9.4-12.4) fL Immature Gran % 1.5 (0-4) % Seg Neutrophils % 83.3 % Lymphocytes % 5.7 % Monocytes % 9.1 % Eosinophils % 0.2 % Basophils % 0.2 % Neutrophils # 18.8 H (1.6-8.9) K/mcL Lymphocytes # 1.3 (0.6-4.6) K/mcL Monocytes # 2.1 H (0.0-1.3) K/mcL Eosinophils # 0.0 (0.0-0.6) K/mcL Basophils # 0.1 (0.0-0.2) K/mcL Nucleated RBCs/100 WBC 0.1 H (0) /100 WBC
[2017-12-07 14:56] LABS: BUN/Creatinine Ratio 27 (6-26); Blood Urea Nitrogen 15 mg/dL (8-23); Calcium 9.3 mg/dL (8.6-10.3); Carbon Dioxide 27 mEq/L (23-29); Chloride 99 mEq/L (98-107); Glucose 225 mg/dL (70-105); Osmolality,Calculated 286 (280-300); Potassium 4.2 mEq/L (3.5-5.1); Sodium 134 mEq/L (136-145); Troponin I < 0.03 ng/mL (< 0.04); eGFR For Non-African Americans > 60 (> 60)
[2017-12-07 15:22] LABS: ABG Base Excess 1 mEq/L (-2 to 3); ABG HCO3 28 mEq/L (21-27); ABG Oxygen Saturation 100 % (95-98); ABG PCO2 51 mmHg (35-45); ABG PH 7.35 pH Units (7.32-7.45); ABG PO2 188 mmHg (85-104); ABG TCO2 29 mEq/L (20-26); Blood Gas Modality BiLevel
[2017-12-07] MEDS ORDERED: Cefepime HCl 1,000 MG in Water for inj. (sterile) 20 ML 10 ML IVP ONE (15:25)
[2017-12-07] MEDS ORDERED: Acetaminophen 325 MG TABLET PO PRN (17:23)
[2017-12-07] MEDS ORDERED: Naloxone 0.4 MG/ML INJ IVP PRN (17:23)
[2017-12-07] MEDS ORDERED: *HR* OxyCODONE Immed Rel 5 MG TABLET PO PRN (17:23)
[2017-12-07] MEDS ORDERED: *HR* Promethazine 25 MG/ML VIAL IVP PRN (17:23)
[2017-12-07] MEDS ORDERED: Ondansetron 4 MG/2 ML VIAL IVP PRN (17:23)
[2017-12-07] MEDS ORDERED: *HR* HYDROcodone/Acet 5/325 mg TABLET PO PRN (17:23)
--- NOTE | 2017-12-07 18:12 | Internal Med History&Physical ---
Date of Encounter: 12/07/17 Time of Encounter: 18:06 Internal Medicine - H&P: HPI Chief complaint: Shortness of breath Admitted From: Emergency Dept Plans for Post Hospital Care: Home History of present illness: Mr. Redding is a 77 year old male with known COPD / Interstitial lung disease, chronic hypoxic resp failure on 2 lit O2 at home who presented to ER co progressively worsening SOB since y/d. He did c/o cough with clear expectoration. Denied any sick contacts. Denied any recent travel. Pt denied any chest pain. When he presented to ER he was severe respiratory failure, have to place him on BiPAP. His initial ABG Ph : 7.35, Pco2 : 51 Po2: 188. Pt states he feels little better now with BiPAP. Past Med Surg Social Fam HX - Past Medical History Medical history: COPD, diabetes, TIA Psychiatric history: no psych history - Past Surgical History Surgical History: herniorrhaphy - Social History Smoking Status: Former smoker Smokeless Tobacco Status: No Alcohol use: none Drug use: none - Family History Father Adopted: No Age: 80 Family Member Ethnicity: Non- Living Status: Cause of : COPD Hx Family Cardiac Disorders: No (COPD) Hx Family Respiratory Disorders: No Hx Family Cancer: No Hx Family GI Disorders: No Hx Family Genitourinary Disorders: No Hx Family Endocrine Disorder: No Hx Family Musculoskeletal Disorders: No Hx Family Neuromuscular Disorders: No Hx Family Neurologic Disorders: No Hx Family HEENT Disorders: No Hx Family Autoimmune Disorders: No Hx Family Reproductive Disorders: No Hx Family Psychosocial Disorders: No Hx Family Medical Disorders: No Mother Age: 80 Living Status: Age at : 80 Cause of : colon cancer Hx Family Cardiac Disorders: No Hx Family Respiratory Disorders: No Hx Family Cancer: Yes (colon cancer) Hx Family GI Disorders: No Hx Family Genitourinary Disorders: No Hx Family Endocrine Disorder: No Hx Family Musculoskeletal Disorders: No Hx Family Neuromuscular Disorders: No Hx Family Neurologic Disorders: No Hx Family HEENT Disorders: No Hx Family Autoimmune Disorders: No Hx Family Reproductive Disorders: No Hx Family Psychosocial Disorders: No Hx Family Medical Disorders: No Internal Medicine - H&P: Meds Aspirin [Lo-Dose Aspirin EC] 81 mg PO DAILY 07/15/16 [History] Salmeterol Xinafoate [Serevent Diskus] 2 puff IH BID 07/15/16 [History] Tiotropium [Spiriva] 18 mcg IH 0700 07/15/16 [History] Albuterol Sulfate [Albuterol Inhaler] 2 puff IH Q4H PRN 04/04/17 [History] Furosemide [Lasix] 20 mg PO DAILY PRN 12/07/17 [History] methylPREDNISolone [Medrol] 4 mg PO BID 12/07/17 [History] 3 Allergy/AdvReac Type Severity Reaction Status Date / Time Amoxicillin [From Amoxil] Allergy Intermediate Rash Verified 12/07/17 14:07 Erythromycin Base Allergy Intermediate Itching Verified 12/07/17 14:07 All Systems PM: A 10-system review of systems was performed and is negative for pertinent findings except as documented above in the HPI. Review of systems: Reviewed all the systems , every thing is benign except the systems and symptoms I mentioned in HPI - Constitutional Vitals: Temp Pulse Resp BP Pulse Ox 98.2 F 92 22 138/76 97 12/07/17 17:11 12/07/17 17:11 12/07/17 17:11 12/07/17 17:11 12/07/17 17:11 General appearance: Present: cooperative, A&O X 3, severe distress, answers questions appropriately - Head Head exam: Present: atraumatic, normal inspection - Neck Neck exam general surgery: Present: supple - Respiratory Respiratory exam: Present: decreased breath sounds, respiratory distress, wheezes. Absent: rales, rhonchi - Cardiovascular Cardiovascular exam: Present: RRR, +S1, +S2. Absent: tachycardia - GI/Abdominal GI/Abdominal exam: Present: normal bowel sounds, soft. Absent: rebound, rigid, tenderness - Extremities Exam Extremities exam: Absent: calf tenderness, pedal edema, tenderness - Back Exam Back exam: Absent: CVA tenderness (L), CVA tenderness (R) - Neurological Exam Neurological exam: Present: alert, oriented X3 - Psychiatric Psychiatric exam: Present: normal affect, normal mood - Skin Skin exam: Absent: rash Internal Med - H&P Results - Labs CBC & Chem 7: 12/07/17 14:09 12/07/17 14:09 - Assessment and plan (1) Acute and chronic respiratory failure with hypoxia Current Visit: Yes Status: Acute Assessment and plan: Possibly triggered by acute bronchitis Admit the pt into step down unit on Tele Will use BiPAP continuously for next 24 hrs High dose IV steroids Duoneb Q4hr Empirical abx with levaquin reviewed CXR showed COPD / Interstitial lung disease.. no active infiltrates noticed Talked to the pt's at bed side and discussed about the current care pt requested for full code (2) Acute bronchitis Current Visit: Yes Status: Acute Assessment and plan: Mostly bacterial purulent bronchitis on empirical abx Levaquin will check Sputum cx, Strep PNA< Legionella, and Resp viral panel Qualifiers: Bronchitis organism: unspecified organism Qualified Code(s): J20.9 - Acute bronchitis, unspecified (3) Acute exacerbation of chronic obstructive airways disease Current Visit: Yes Status: Acute Assessment and plan: see above - Time Spent With Patient Total time spent is greater than 50% in coordination of care (as documented) at patient's floor/unit and/or counseling patient:
[2017-12-07] MEDS: MethylPREDNISolone 40 MG/ML VIAL IVP SCH (18:56)
[2017-12-07] MEDS: Ipratropium/Albuterol Neb 3 ML IH SCH (20:08)
[2017-12-08] MEDS: Ipratropium/Albuterol Neb 3 ML IH SCH ×7 (00:10→23:40)
[2017-12-08] MEDS: MethylPREDNISolone 40 MG/ML VIAL IVP SCH ×3 (00:32→17:31)
[2017-12-08 02:20] LABS: Adenovirus Not Detected (Not Detect); Bordetella Pertussis Not Detected (Not Detect); Chlamydophila pneumoniae Not Detected (Not Detect); Coronavirus 229E Not Detected (Not Detect); Coronavirus HKU1 Not Detected (Not Detect); Coronavirus NL63 Not Detected (Not Detect); Coronavirus OC43 Not Detected (Not Detect); Human Metapneumovirus Not Detected (Not Detect); Human Rhinovirus/Enterovirus Not Detected (Not Detect); Influenza A Subtype 2009 H1 Not Detected (Not Detect); Influenza A Untypeable Not Detected (Not Detect); Influenza B Not Detected (Not Detect); Mycoplasma pneumoniae Not Detected (Not Detect); Parainfluenza Virus 1 Not Detected (Not Detect); Parainfluenza Virus 2 Not Detected (Not Detect); Parainfluenza Virus 3 Not Detected (Not Detect); Parainfluenza Virus 4 Not Detected (Not Detect); Respiratory Syncytial Virus Not Detected (Not Detect)
[2017-12-08 04:19] LABS: Basophils % 0.1 %; Hematocrit 36.8 % (37.5-50.1); Hemoglobin 12.5 g/dL (12.9-16.9); Immature Granulocytes % 0.8 % (0-4); Lymphocytes # 0.3 K/mcL (0.6-4.6); Lymphocytes % 3.1 %; Mean Corpuscular Hemoglobin 36.9 pg (28.0-33.3); Mean Corpuscular Volume 108.6 fL (83.0-100.0); Mean Platelet Volume 9.8 fL (9.4-12.4); Monocytes # 0.1 K/mcL (0.0-1.3); Monocytes % 0.9 %; Neutrophils # 7.6 K/mcL (1.6-8.9); Platelet Count 181 K/mcL (140-400); Red Blood Count 3.39 M/mcL (4.19-5.50); Red Cell Distribution Width 13.5 % (11.5-14.5); Segmented Neutrophils % 95.1 %
[2017-12-08 04:33] LABS: BUN/Creatinine Ratio 30 (6-26); Blood Urea Nitrogen 15 mg/dL (8-23); Calcium 8.7 mg/dL (8.6-10.3); Carbon Dioxide 24 mEq/L (23-29); Chloride 104 mEq/L (98-107); Glucose 246 mg/dL (70-105); Osmolality,Calculated 289 (280-300); Potassium 4.3 mEq/L (3.5-5.1); Sodium 135 mEq/L (136-145); eGFR For Non-African Americans > 60 (> 60)
[2017-12-08] MEDS: *HR* Enoxaparin 40 MG/0.4 ML SYRINGE SQ SCH (06:22)
--- NOTE | 2017-12-08 06:36 | Electrocardiograph Report ---
[place] [facility] Test Date: 2017-12-07 Pat Name: Jean Carlos Redding Department: [id number] Room: 2N03 Gender: M Slag Skimmer: EKP : [id number] Requested By: Tien Stone Order Number: [id number] Reading MD: Adonay Ennis Measurements Intervals [place] Rate: 119 P: 81 TX: 157 QRS: 66 QRSD: 93 T: 82 QT: 308 QTc: 378 Interpretive Statements SINUS TACHYCARDIA MODERATE ST DEPRESSION [0.05+ mV ST DEPRESSION] Electronically Signed On 12-08-2017 6:34:34 EDT by Adonay Ennis
[2017-12-08] MEDS: Aspirin Enteric Coated 81 MG Tablet PO SCH (07:40)
[2017-12-08] MEDS: Levofloxacin 750 MG/150 ML 750 MG/150 ML BAG IVPB SCH (07:40)
--- NOTE | 2017-12-08 10:08 | Internal Med Progress Note ---
Hospitalist Progress Note - Encounter Date of Encounter: 12/08/17 Time of Encounter: 09:00 - Subjective Interval History: Mr. Redding is a 77 year old male with known COPD / Interstitial lung disease, chronic hypoxic resp failure on 2 lit O2 at home who presented to ER co progressively worsening SOB since y/d. He did c/o cough with clear expectoration. Denied any sick contacts. Denied any recent travel. Pt denied any chest pain. When he presented to ER he was severe respiratory failure, have to place him on BiPAP. Pt is off the BiPAP now. Resting comfortably on 4 lit O2. States he is feeling better now. Still has moderate SOB and GIORDANO, cough with expectoration. - Exam Vitals: Temp Pulse Resp BP Pulse Ox 98.1 F 73 18 120/87 99 12/08/17 07:37 12/08/17 04:03 12/08/17 07:37 12/08/17 07:37 12/08/17 07:37 Exam: Gen: Alert, awake, Oriented to time,place and person Chest: Diminished breath sounds B/L, moderate wheezing, No crackles, No rales Heart: S1S2+ RRR No murmurs Abd: Soft, NT, BS +, No organomegaly Ext: No edema, pulses are palpable, No calf tenderness Neuro : Benign findings Skin: No rash. - Assessment and Plan (1) Acute and chronic respiratory failure with hypoxia Current Visit: Yes Status: Acute Assessment and Plan: Possibly triggered by acute bronchitis Improving Use BiPAP as needed His ABG from y/d showed mild hypercapnea too he may get benefit with BiPAP study start tapering IV steroids Duoneb Q4hr Cont empirical abx with levaquin (2) Acute bronchitis Current Visit: Yes Status: Acute Assessment and Plan: Mostly bacterial purulent bronchitis on empirical abx Levaquin Sputum cx - P Strep PNA, Legionella, and Resp viral panel - Negative so far (3) Acute exacerbation of chronic obstructive airways disease Current Visit: Yes Status: Acute Assessment and Plan: see above - Time Spent with Patient Total time spent is greater than 50% in coordination of care (as documented) at patient's floor/unit and/or counseling patient: Internal Medicine: Result - Labs CBC & Chem 7: 12/08/17 03:55 12/08/17 03:55 Labs: Short CBC 12/08/17 Range/Units 03:55 WBC 8.0 D (4.3-11.1) K/mcL Hgb 12.5 L D (12.9-16.9) g/dL Hct 36.8 L (37.5-50.1) % Plt Count 181 (140-400) K/mcL Neutrophils # 7.6 (1.6-8.9) K/mcL BMP 12/08/17 03:55 Sodium 135 L Potassium 4.3 Chloride 104 Carbon Dioxide 24 BUN 15 Creatinine 0.50 L Glucose 246 H Calcium 8.7 - ABG Interpretation ABG results: ABG ABG pH 7.35 pH Units (7.32-7.45) 12/07/17 15:17 ABG pCO2 51 mmHg (35-45) H 12/07/17 15:17 ABG pO2 188 mmHg (85-104) H 12/07/17 15:17 ABG O2 Saturation 100 % (95-98) H 12/07/17 15:17 - VTE Documentation of Mechanical Device: Intermittent pneumatic compression device Consult Discharge Plan - Plan Referrals: Edgard Concepcion MD [Primary Care Provider] - 12/17/17 10:00 am (2) Acute bronchitis Qualifiers: Bronchitis organism: unspecified organism Qualified Code(s): J20.9 - Acute bronchitis, unspecified
[2017-12-08] MEDS ORDERED: Dextrose Gel 15 GM/37.5 ML TUBE PO PRN ×2 (17:15)
[2017-12-08] MEDS ORDERED: *HR* Dextrose 50 % in Water (Syg) 50 ML SYRINGE IVP PRN (17:15)
[2017-12-08] MEDS ORDERED: D5% in Water 1,000 ML IVC PRN (17:15)
[2017-12-08] MEDS: Insulin LISPRO 300 UNITS/3 ML VIAL SQ SCH (21:09)
[2017-12-09] MEDS: Ipratropium/Albuterol Neb 3 ML IH SCH ×6 (03:47→23:22)
[2017-12-09] MEDS: *HR* Enoxaparin 40 MG/0.4 ML SYRINGE SQ SCH (05:25)
[2017-12-09] MEDS: MethylPREDNISolone 40 MG/ML VIAL IVP SCH ×2 (05:25→17:12)
[2017-12-09] MEDS: Aspirin Enteric Coated 81 MG Tablet PO SCH (08:37)
[2017-12-09] MEDS: Insulin LISPRO 300 UNITS/3 ML VIAL SQ SCH ×5 (08:38→22:28)
[2017-12-09] MEDS: Levofloxacin 750 MG/150 ML 750 MG/150 ML BAG IVPB SCH (08:38)
--- NOTE | 2017-12-09 15:30 | Internal Med Progress Note ---
Hospitalist Progress Note - Encounter Date of Encounter: 12/09/17 Time of Encounter: 09:00 - Subjective Interval History: Mr. Redding is a 77 year old male with known COPD / Interstitial lung disease, chronic hypoxic resp failure on 2 lit O2 at home who presented to ER co progressively worsening SOB since y/d. He did c/o cough with clear expectoration. Denied any sick contacts. Denied any recent travel. Pt denied any chest pain. When he presented to ER he was severe respiratory failure, have to place him on BiPAP. Pt is off the BiPAP now. Resting comfortably on 2 lit O2. States he is feeling better now. Still has moderate SOB and GIORDANO, cough with expectoration. No events over night - Exam Vitals: Temp Pulse Resp BP Pulse Ox 97.8 F 92 22 126/75 93 12/09/17 10:58 12/09/17 10:58 12/09/17 11:22 12/09/17 10:58 12/09/17 11:22 Exam: Gen: Alert, awake, Oriented to time,place and person Chest: Diminished breath sounds B/L, mild to moderate wheezing, No crackles, No rales Heart: S1S2+ RRR No murmurs Abd: Soft, NT, BS +, No organomegaly Ext: No edema, pulses are palpable, No calf tenderness Neuro : Benign findings Skin: No rash. - Assessment and Plan (1) Acute and chronic respiratory failure with hypoxia Current Visit: Yes Status: Acute Assessment and Plan: Possibly triggered by acute bronchitis Improving Use BiPAP as needed His ABG from y/d showed mild hypercapnea too he may get benefit with BiPAP study Cont tapering IV steroids Duoneb Q4hr Cont empirical abx with Levaquin (2) Acute bronchitis Current Visit: Yes Status: Acute Assessment and Plan: Mostly bacterial purulent bronchitis on empirical abx Levaquin Sputum cx - No growth Strep PNA, Legionella, and Resp viral panel - Negative so far (3) Acute exacerbation of chronic obstructive airways disease Current Visit: Yes Status: Acute Assessment and Plan: see above - Time Spent with Patient Total time spent is greater than 50% in coordination of care (as documented) at patient's floor/unit and/or counseling patient: Internal Medicine: Result - Labs CBC & Chem 7: 12/08/17 03:55 12/08/17 03:55 - ABG Interpretation ABG results: ABG ABG pH 7.35 pH Units (7.32-7.45) 12/07/17 15:17 ABG pCO2 51 mmHg (35-45) H 12/07/17 15:17 ABG pO2 188 mmHg (85-104) H 12/07/17 15:17 ABG O2 Saturation 100 % (95-98) H 12/07/17 15:17 - VTE Documentation of Mechanical Device: Intermittent pneumatic compression device Consult Discharge Plan - Plan Referrals: Edgard Concepcion MD [Primary Care Provider] - 12/17/17 10:00 am (2) Acute bronchitis Qualifiers: Bronchitis organism: unspecified organism Qualified Code(s): J20.9 - Acute bronchitis, unspecified
[2017-12-10] MEDS: Ipratropium/Albuterol Neb 3 ML IH SCH ×2 (03:56→07:52)
[2017-12-10] MEDS: *HR* Enoxaparin 40 MG/0.4 ML SYRINGE SQ SCH (05:47)
[2017-12-10] MEDS: MethylPREDNISolone 40 MG/ML VIAL IVP SCH (05:47)
[2017-12-10 07:40] VITALS: BP 102/53
[2017-12-10] MEDS ORDERED: levoFLOXacin 750 MG TABLET PO SCH (09:00)
[2017-12-10] MEDS: Aspirin Enteric Coated 81 MG Tablet PO SCH (09:25)
[2017-12-10] MEDS: Insulin LISPRO 300 UNITS/3 ML VIAL SQ SCH (09:25)
--- NOTE | 2017-12-10 09:49 | Discharge Summary ---
- NOTES TO OUTPATIENT PROVIDER Notes to Outpatient Provider: f/u with PCP in one week. f/u with Pulmonary from [facility] in 1-2 weeks. Please continue taking tapering steroids, If your SOB does not improve you can take extra steroids, but call your PCP to help with directions Orders not resulted at time of discharge: Pending orders 12/10/17 09:18 ABG [Arterial Blood Gas] Stat Date of Encounter: 12/10/17 Time of Encounter: 09:45 - Discharge Diagnosis (1) Acute and chronic respiratory failure with hypoxia Priority: Primary Status: Acute (2) Acute bronchitis Priority: Primary Status: Acute Qualifiers: Bronchitis organism: unspecified organism Qualified Code(s): J20.9 - Acute bronchitis, unspecified (3) Acute exacerbation of chronic obstructive airways disease Priority: Primary Status: Acute Hospital course: Mr. Redding is a 77 year old male with known COPD / Interstitial lung disease, chronic hypoxic resp failure on 2 lit O2 at home who presented to ER co progressively worsening SOB since y/d. He did c/o cough with clear expectoration. Denied any sick contacts. Denied any recent travel. Pt denied any chest pain. When he presented to ER he was severe respiratory failure, have to place him on BiPAP. Pt was started on aggressive high dose IV steroids and frequent Duoneb. Also placed him on empirical abx Levaquin for possible acute bronchitis. Pt is off the BiPAP now. Resting comfortably on 2 lit O2. Seems he is back to baseline and wants to go home today. We did BiPAP study, his ABG seems to be close to normal, did not qualify for BiPAP. - Time Spent with Patient Total time spent providing and/or coordinating discharge services: - Discharge Medications Prescriptions: GuaiFENesin/Dextromethorphan [Mucinex DM] 1 each PO BID #30 tab.er.12h levoFLOXacin [Levaquin] 750 mg PO DAILY #4 tablet methylPREDNISolone [Medrol] 16 mg PO BID #20 tablet Home Medications: Aspirin [Lo-Dose Aspirin EC] 81 mg PO DAILY 07/15/16 [History] Salmeterol Xinafoate [Serevent Diskus] 2 puff IH BID 07/15/16 [History] Tiotropium [Spiriva] 18 mcg IH 0700 07/15/16 [History] Albuterol Sulfate [Albuterol Inhaler] 2 puff IH Q4H PRN 04/04/17 [History] Furosemide [Lasix] 20 mg PO DAILY PRN 12/07/17 [History] GuaiFENesin/Dextromethorphan [Mucinex DM] 1 each PO BID #30 tab.er.12h 12/10/17 [Rx] levoFLOXacin [Levaquin] 750 mg PO DAILY #4 tablet 12/10/17 [Rx] methylPREDNISolone [Medrol] 16 mg PO BID #20 tablet 12/10/17 [Rx] Allergies/Adverse Reactions: 3 Allergy/AdvReac Type Severity Reaction Status Date / Time Amoxicillin [From Amoxil] Allergy Intermediate Rash Verified 12/07/17 14:07 Erythromycin Base Allergy Intermediate Itching Verified 12/07/17 14:07 Date of admission: 12/07/17 17:23 Primary care physician: Edgard Concepcion MD - Constitutional Vitals: Temp Pulse Resp BP Pulse Ox 98.7 F 88 18 102/53 91 12/10/17 07:39 12/10/17 07:39 12/10/17 07:54 12/10/17 07:39 12/10/17 07:54 General appearance: Present: cooperative, A&O X 3, answers questions appropriately - Head Head exam: Present: atraumatic, normal inspection - Neck Neck exam general surgery: Present: supple - Respiratory Respiratory exam: Present: decreased breath sounds, wheezes (mild). Absent: rales, respiratory distress, rhonchi - Cardiovascular Cardiovascular exam: Present: RRR, +S1, +S2. Absent: tachycardia - GI/Abdominal GI/Abdominal exam: Present: normal bowel sounds, soft. Absent: rebound, rigid, tenderness - Extremities Exam Extremities exam: Absent: calf tenderness, pedal edema, tenderness - Back Exam Back exam: Absent: CVA tenderness (L), CVA tenderness (R) - Neurological Exam Neurological exam: Present: alert, oriented X3 - Patient Status Disposition: Home, Self-Care Condition: Fair Overall status at discharge: patient is back to baseline - Discharge Instructions Instructions: Guaifenesin (By mouth), Methylprednisolone (By mouth), Levofloxacin (By mouth) Follow Up With: Edgard Concepcion MD [Primary Care Provider] - 12/17/17 10:00 am - Diet and Activity Activity: increase activity as tolerated, wear oxygen at all times Diet: low salt diet - VTE Documentation of Mechanical Device: Intermittent pneumatic compression device
[2017-12-10 09:51] LABS: ABG Base Excess 4 mEq/L (-2 to 3); ABG HCO3 30 mEq/L (21-27); ABG Oxygen Saturation 92 % (95-98); ABG PCO2 49 mmHg (35-45); ABG PH 7.39 pH Units (7.32-7.45); ABG PO2 67 mmHg (85-104); ABG TCO2 31 mEq/L (20-26)
== END 2017-12-10 10:56 | disposition home or self-care (01) | DRG 189 ==
LOC: 2ANU 14:02 → EMEROO 14:02 → 2NNU 16:32 → 2ANU 12-08 15:29
PROVIDERS: ADMIT Internal Medicine; ATTEND Internal Medicine

== ENCOUNTER 2018-12-21 20:56 | Observation (INO) ==
[2018-12-21] MEDS ORDERED: methylPREDNISolone 125 MG/2 ML VIAL ONE (20:59)
[2018-12-21] MEDS ORDERED: methylPREDNISolone 125 MG/2 ML VIAL IVP ONE (21:08)
[2018-12-21] MEDS ORDERED: *HR* LORazepam 2 MG/ML VIAL IVP ONE (21:13)
[2018-12-21 21:14] LABS: ABG Base Excess 2 mEq/L (-2 to 3); ABG HCO3 29 mEq/L (21-27); ABG Oxygen Saturation 100 % (95-98); ABG PCO2 57 mmHg (35-45); ABG PH 7.32 pH Units (7.32-7.45); ABG PO2 433 mmHg (85-104); ABG TCO2 31 mEq/L (20-26); Blood Gas Modality AVAPS; Blood Gas Pressure Support 8 cm H2O; Blood Gas VT 500 cc
[2018-12-21 21:32] LABS: Basophils # 0.1 K/mcL (0.0-0.2); Basophils % 0.3 %; Eosinophils % 0.2 %; Hemoglobin 15.1 g/dL (12.9-16.9); Lymphocytes # 1.1 K/mcL (0.6-4.6); Lymphocytes % 6.9 %; Mean Corpuscular HGB Conc 33.6 g/dL (31.6-35.5); Mean Corpuscular Hemoglobin 37.4 pg (28.0-33.3); Mean Corpuscular Volume 111.4 fL (83.0-100.0); Mean Platelet Volume 9.5 fL (9.4-12.4); Monocytes # 1.8 K/mcL (0.0-1.3); Monocytes % 11.1 %; Neutrophils # 13.2 K/mcL (1.6-8.9); Nucleated Red Blood Cells 0.2 /100 WBC (0); Platelet Count 217 K/mcL (140-400); Red Blood Count 4.04 M/mcL (4.19-5.50); Red Cell Distribution Width 13.5 % (11.5-14.5); Segmented Neutrophils % 80.5 %; White Blood Count 16.4 K/mcL (4.3-11.1)
[2018-12-21] MEDS ORDERED: Isovue-370 500 ML BOTTLE IVP ONE (21:39)
[2018-12-21 21:52] LABS: Macrocytosis Present (Not Present); Platelet Estimate Normal (Normal)
[2018-12-21 21:53] LABS: BUN/Creatinine Ratio 27 (6-26); Blood Urea Nitrogen 19 mg/dL (8-23); Calcium 9.3 mg/dL (8.6-10.3); Carbon Dioxide 30 mEq/L (23-29); Chloride 99 mEq/L (98-107); Glucose 232 mg/dL (70-105); Osmolality,Calculated 298 (280-300); Potassium 4.2 mEq/L (3.5-5.1); Sodium 139 mEq/L (136-145); Troponin I < 0.03 ng/mL (< 0.04); eGFR For African Americans > 60 (> 60); eGFR For Non-African Americans > 60 (> 60)
[2018-12-21] MEDS ORDERED: levoFLOXacin 750 MG/150 ML 750 MG/150 ML BAG IVPB ONE (22:10)
[2018-12-21] MEDS ORDERED: 0.9 % Sodium Chloride 1,000 ML IVC ONE (22:10)
[2018-12-21] MEDS ORDERED: cefTRIAXone 1,000 MG in Water for inj. (sterile) 10 ML IVP ONE (22:10)
[2018-12-21] MEDS ORDERED: Doxycycline 100 MG in 0.9 % Sodium Chloride Mini Bag 100 ML IVPB ONE (22:41)
[2018-12-22] MEDS ORDERED: Naloxone 0.4 MG/ML INJ IVP PRN (06:10)
[2018-12-22] MEDS ORDERED: D5% in Water 1,000 ML IVC PRN (06:21)
[2018-12-22] MEDS ORDERED: *HR* Dextrose 50 % in Water (Syg) 50 ML SYRINGE IVP PRN (06:21)
[2018-12-22] MEDS ORDERED: Dextrose Gel 15 GM/37.5 ML TUBE PO PRN ×2 (06:21)
[2018-12-22] MEDS ORDERED: Furosemide 20 MG TABLET PO PRN (06:31)
[2018-12-22] MEDS ORDERED: Tiotropium 18 MCG inhalation IH SCH (07:00)
[2018-12-22 07:49] LABS: Hematocrit 37.6 % (37.5-50.1); Mean Corpuscular Hemoglobin 36.7 pg (28.0-33.3); Mean Corpuscular Volume 107.7 fL (83.0-100.0); Mean Platelet Volume 9.6 fL (9.4-12.4); Platelet Count 188 K/mcL (140-400); Red Blood Count 3.49 M/mcL (4.19-5.50); Red Cell Distribution Width 13.8 % (11.5-14.5)
[2018-12-22 07:52] LABS: Hemoglobin 12.8 g/dL (12.9-16.9); White Blood Count 5.3 K/mcL (4.3-11.1)
[2018-12-22 08:04] LABS: BUN/Creatinine Ratio 41 (6-26); Blood Urea Nitrogen 17 mg/dL (8-23); Calcium 8.6 mg/dL (8.6-10.3); Carbon Dioxide 25 mEq/L (23-29); Chloride 103 mEq/L (98-107); Glucose 281 mg/dL (70-105); Osmolality,Calculated 300 (280-300); Potassium 4.1 mEq/L (3.5-5.1); Sodium 139 mEq/L (136-145); eGFR For African Americans > 60 (> 60); eGFR For Non-African Americans > 60 (> 60)
[2018-12-22 08:05] LABS: Troponin I < 0.03 ng/mL (< 0.04)
[2018-12-22] MEDS: Insulin LISPRO 300 UNITS/3 ML VIAL SQ SCH ×2 (08:10→12:43)
[2018-12-22] MEDS ORDERED: SALMETEROL XINAFOATE IH SCH (09:00)
[2018-12-22] MEDS ORDERED: methylPREDNISolone 4 MG TABLET PO SCH (09:00)
[2018-12-22] MEDS ORDERED: Aspirin Enteric Coated 81 MG Tablet PO SCH (09:00)
[2018-12-22] MEDS ORDERED: Albuterol 2.5 MG/3 ML NEBULIZER IH SCH (11:00)
[2018-12-22 12:32] VITALS: BP 116/84
[2018-12-22] MEDS ORDERED: *HR* Heparin 5,000 UNIT/ML VIAL SQ SCH (18:00)
[2018-12-22] MEDS ORDERED: Insulin LISPRO 300 UNITS/3 ML VIAL SQ SCH (21:00)
== END 2018-12-22 15:29 | disposition hospice, home (50) ==
LOC: EMEROOARM 20:56 → 2NENU 20:56 → SUATTDRO 23:28 → 2NENU 23:57
PROVIDERS: ADMIT Pediatrics; ATTEND Internal Medicine